=== PATIENT | female | born 1960 | race Caucasian/White ===

== ENCOUNTER 2017-10-31 13:09 | Day surgery (SDC) | payer OTHER ==
[2017-10-31] MEDS ORDERED: PROPOFOL 40 ML (17:12)
== END 2017-10-31 19:50 | disposition home or self-care (01) ==
LOC: GIL 13:09
DX: Z12.11 Encounter for screening for malignant neoplasm of colon (principal); K64.8 Other hemorrhoids; K29.50 Unspecified chronic gastritis without bleeding; E11.9 Type 2 diabetes mellitus without complications; Z79.84 Long term (current) use of oral hypoglycemic drugs; Z82.3 Family history of stroke; Z82.49 Family history of ischemic heart disease and other diseases of the circulatory system; Z80.8 Family history of malignant neoplasm of other organs or systems
CPT/HCPCS: 45378; 82962; 88305; 88312